=== PATIENT | female | born 1960 | race Caucasian/White ===

== ENCOUNTER 2019-10-22 17:43 | Emergency (ER) | payer SELFPAY ==
[~2019-10-22] VITALS: Ht 149.9 cm; Wt 70.5 kg
[2019-10-22 17:48] VITALS: BP 146/93
== END 2019-10-22 20:14 | disposition left against medical advice (07) ==
LOC: EMS 17:47
DX: M25.562 Pain in left knee (principal); Z53.21 Procedure and treatment not carried out due to patient leaving prior to being seen by health care provider

== ENCOUNTER 2019-10-28 13:57 | Inpatient (IN) | payer OTHER ==
[~2019-10-28] VITALS: Ht 149.9 cm; Wt 70.0 kg
[2019-10-28] MEDS ORDERED: ATEN50TA PO (14:12)
[2019-10-28] MEDS ORDERED: HYDR-3831 PO (14:12)
[2019-10-28] MEDS ORDERED: SODIUM CHLORIDE 0.9% 1,000 ML IV ONE (15:30)
[2019-10-28] MEDS ORDERED: KETOROLAC TROMETHAMINE 30 MG/ML VIAL IVP ONE (15:30)
[2019-10-28] MEDS ORDERED: ONDANSETRON HCL 4 MG/2 ML VIAL IVP ONE (15:30)
[2019-10-28 16:05] LABS: BASOPHILS % (AUTO) 0.9 % (0.0-2.0); EOSINOPHILS % (AUTO) 2.3 % (1.0-6.0); HEMATOCRIT 43.6 % (36-46); HEMOGLOBIN 14.6 g/dL (12.0-16.0); LYMPHOCYTES # (AUTO) 2.3 K/uL (1.0-4.8); LYMPHOCYTES % (AUTO) 37.7 % (22.0-44.0); MEAN CORPUSCULAR HEMOGLOBIN 30.6 pg (26.0-34.0); MEAN CORPUSCULAR HGB CONC 33.5 G/dL (31.0-37.0); MEAN CORPUSCULAR VOLUME 91 fL (80-100); MONOCYTES # (AUTO) 0.5 K/uL (0.1-1.0); MONOCYTES % (AUTO) 8.6 % (2.0-9.0); NEUTROPHILS # (AUTO) 3.1 K/uL (1.8-7.7); NEUTROPHILS % (AUTO) 50.5 % (40.0-70.0); PLATELET COUNT (AUTO) 369 K/uL (150-450); RED BLOOD CELL COUNT(AUTO) 4.77 MIL/uL (4.00-5.20); RED CELL DISTRIBUTION WIDTH 14.5 % (11.5-14.5)
[2019-10-28 16:07] LABS: INR 0.9 (0.9-1.1); PROTHROMBIN TIME 9.4 SEC (9.4-11.6)
[2019-10-28 16:15] LABS: ANION GAP 7 mmol/L (8-16); CALCIUM, TOTAL 9.1 mg/dL (8.8-10.5); CARBON DIOXIDE 27 mmol/L (22-29); CHLORIDE 102 mmol/L (98-107); CREATININE 0.61 mg/dL (0.60-1.30); GLOMERULAR FILTR. RATE CALC > 60 mL/min (>60); GLUCOSE,RANDOM 109 mg/dL (70-110); POTASSIUM 4.9 mmol/L (3.5-5.1); SODIUM SERUM 136 mmol/L (136-145); UREA NITROGEN, BLOOD 15 mg/dL (7-18)
[2019-10-28 16:40] LABS: ALANINE AMINOTRANSFERASE 32 U/L (12-78); ALKALINE PHOSPHATASE 94 U/L (46-116); BILIRUBIN,TOTAL 0.3 mg/dL (0.1-1.0); CREATINE KINASE, TOTAL ONLY 97 U/L (26-192); TOTAL PROTEIN, SERUM 7.5 g/dL (6.4-8.2)
[2019-10-28 16:43] LABS: B-TYPE NATRIURETIC PEPTIDE 11 pg/mL (0-100)
[2019-10-28] MEDS ORDERED: ACETAMINOPHEN 325 MG TABLET PO PRN ×2 (17:00→21:30)
[2019-10-28] MEDS ORDERED: ONDANSETRON HCL 4 MG/2 ML VIAL IVP PRN (17:00)
[2019-10-28] MEDS ORDERED: LIDOCAINE 5% TRANSDERMAL PATCH TD ONE (17:00)
[2019-10-28] MEDS ORDERED: ACETAMINOPHEN 500 MG TABLET PO ONE (17:00)
[2019-10-28 17:26] LABS: ASPARTATE AMINOTRANSFERASE 29 U/L (15-37)
[2019-10-28 18:58] VITALS: BP 141/80
[2019-10-28 20:14] VITALS: BP 115/75
[2019-10-28] MEDS ORDERED: MORPHINE SULFATE 2 MG/ML SYRINGE IVP PRN (20:30)
[2019-10-28] MEDS ORDERED: BISACODYL 10 MG RECTAL RECTAL SUPPOSITORY PR PRN (21:30)
[2019-10-28] MEDS ORDERED: MAGNESIUM HYDROXIDE SUSPENSION 30 ML UDCUP PO PRN (21:30)
[2019-10-28] MEDS: HEPARIN SODIUM,PORCINE 5,000 UNITS/ML VIAL SQ SCH (22:43)
[2019-10-28] MEDS: ZOLPIDEM TARTRATE 5 MG TABLET PO PRN (22:44)
[2019-10-28] MEDS: HYDROCODONE/ACETAMINOPHEN 5-325 MG TABLET PO PRN (22:44)
[2019-10-28 22:45] VITALS: BP 114/73
[2019-10-29] MEDS ORDERED: PNEUMOCOCCAL VACCINE POLYVALENT 0.5 ML VIAL [PPSV23] IM ONE (01:30)
[2019-10-29] MEDS: MORPHINE SULFATE 2 MG/ML SYRINGE IVP PRN ×5 (01:30→22:03)
[2019-10-29] MEDS: HYDROCODONE/ACETAMINOPHEN 5-325 MG TABLET PO PRN ×3 (04:38→14:21)
[2019-10-29 06:22] VITALS: BP 100/68
[2019-10-29 07:51] VITALS: BP 93/55
[2019-10-29 07:54] LABS: BASOPHILS % (AUTO) 0.3 % (0.0-2.0); EOSINOPHILS % (AUTO) 2.4 % (1.0-6.0); HEMATOCRIT 37.1 % (36-46); HEMOGLOBIN 12.8 g/dL (12.0-16.0); LYMPHOCYTES # (AUTO) 2.5 K/uL (1.0-4.8); MEAN CORPUSCULAR HEMOGLOBIN 31.4 pg (26.0-34.0); MEAN CORPUSCULAR HGB CONC 34.4 G/dL (31.0-37.0); MEAN CORPUSCULAR VOLUME 91 fL (80-100); MONOCYTES # (AUTO) 0.4 K/uL (0.1-1.0); NEUTROPHILS # (AUTO) 1.8 K/uL (1.8-7.7); NEUTROPHILS % (AUTO) 36.3 % (40.0-70.0); PLATELET COUNT (AUTO) 318 K/uL (150-450); RED BLOOD CELL COUNT(AUTO) 4.07 MIL/uL (4.00-5.20); RED CELL DISTRIBUTION WIDTH 14.2 % (11.5-14.5)
[2019-10-29 08:20] LABS: ANION GAP 10 mmol/L (8-16); CALCIUM, TOTAL 8.6 mg/dL (8.8-10.5); CARBON DIOXIDE 23 mmol/L (22-29); CHLORIDE 105 mmol/L (98-107); CREATININE 0.69 mg/dL (0.60-1.30); GLOMERULAR FILTR. RATE CALC > 60 mL/min (>60); GLUCOSE,RANDOM 80 mg/dL (70-110); POTASSIUM 4.3 mmol/L (3.5-5.1); SODIUM SERUM 138 mmol/L (136-145); THYROID STIMULATING HORMONE 2.57 uIU/mL (0.36-3.74); UREA NITROGEN, BLOOD 14 mg/dL (7-18)
[2019-10-29] MEDS: PANTOPRAZOLE SODIUM 40 MG DR TABLET PO SCH (08:41)
[2019-10-29] MEDS: HEPARIN SODIUM,PORCINE 5,000 UNITS/ML VIAL SQ SCH ×3 (08:41→23:35)
[2019-10-29] MEDS: DOCUSATE SODIUM 100 MG CAPSULE PO SCH ×2 (08:42→20:25)
[2019-10-29] MEDS: ATENOLOL 50 MG TABLET PO SCH (08:42)
[2019-10-29] MEDS: ONDANSETRON HCL 4 MG/2 ML VIAL IVP PRN (10:02)
[2019-10-29 11:35] VITALS: BP 131/79
[2019-10-29 15:13] VITALS: BP 117/79
[2019-10-29 18:07] LABS: AMPHET/METH SCREEN,URINE NEGATIVE (NEGATIVE); BARBITURATE SCREEN, URINE NEGATIVE (NEGATIVE); BENZODIAZEPINES SCREEN,URINE NEGATIVE (NEGATIVE); CANNABINOID SCREEN,URINE NEGATIVE (NEGATIVE); COCAINE SCREEN,URINE NEGATIVE (NEGATIVE); METHADONE SCREEN, URINE NEGATIVE (NEGATIVE); OPIATE SCREEN,URINE POSITIVE (NEGATIVE); PHENCYCLIDINE SCREEN,URINE NEGATIVE (NEGATIVE)
[2019-10-29 20:01] VITALS: BP 140/75
[2019-10-29] MEDS: LORazepam 2 MG/ML VIAL IVP PRN (20:27)
[2019-10-29] MEDS: ZOLPIDEM TARTRATE 5 MG TABLET PO PRN (22:03)
[2019-10-29 23:52] VITALS: BP 102/72
[2019-10-30] MEDS: MORPHINE SULFATE 2 MG/ML SYRINGE IVP PRN ×4 (04:06→19:47)
[2019-10-30 04:10] VITALS: BP 97/62
[2019-10-30] MEDS: HYDROCODONE/ACETAMINOPHEN 5-325 MG TABLET PO PRN ×3 (06:18→21:48)
[2019-10-30 07:54] VITALS: BP 108/75
[2019-10-30] MEDS: ONDANSETRON HCL 4 MG/2 ML VIAL IVP PRN ×2 (07:58→22:40)
[2019-10-30 08:30] VITALS: BP 107/73
[2019-10-30] MEDS: ATENOLOL 50 MG TABLET PO SCH (09:00)
[2019-10-30] MEDS: DOCUSATE SODIUM 100 MG CAPSULE PO SCH ×2 (09:00→19:47)
[2019-10-30] MEDS ORDERED: REGADENOSON 0.4 MG/5 ML PF SYRINGE IVP ONE ×2 (09:59→10:09)
[2019-10-30 10:09] VITALS: BP 126/85
[2019-10-30] MEDS: PANTOPRAZOLE SODIUM 40 MG DR TABLET PO SCH (10:52)
[2019-10-30] MEDS: LORazepam 2 MG/ML VIAL IVP PRN ×3 (10:53→23:31)
[2019-10-30] MEDS: HEPARIN SODIUM,PORCINE 5,000 UNITS/ML VIAL SQ SCH ×3 (10:53→23:31)
[2019-10-30 11:13] VITALS: BP 128/72
[2019-10-30 21:00] VITALS: BP 130/86
[2019-10-31 00:53] VITALS: BP 122/80
[2019-10-31] MEDS: MORPHINE SULFATE 2 MG/ML SYRINGE IVP PRN (01:19)
[2019-10-31] MEDS: HYDROCODONE/ACETAMINOPHEN 5-325 MG TABLET PO PRN (03:04)
[2019-10-31 04:15] VITALS: BP 98/64
[2019-10-31 08:00] VITALS: BP 128/93
== END 2019-10-31 10:10 | disposition home or self-care (01) | DRG 203 ==
LOC: EMS 13:57 → 5N 18:12
PROVIDERS: ADMIT Internal Medicine; ATTEND Internal Medicine
PROC: 3E0234Z Introduction of Serum, Toxoid and Vaccine into Muscle, Percutaneous Approach (ICD-10-PCS; 2019-10-29)
PROC: 4A02XM4 Measurement of Cardiac Total Activity, External Approach (ICD-10-PCS; principal; 2019-10-30)
DX: R07.89 Other chest pain (principal); F15.10 Other stimulant abuse, uncomplicated; R42 Dizziness and giddiness; F41.1 Generalized anxiety disorder; I10 Essential (primary) hypertension; Z96.659 Presence of unspecified artificial knee joint; R55 Syncope and collapse; M25.562 Pain in left knee; Z88.6 Allergy status to analgesic agent; Z88.8 Allergy status to other drugs, medicaments and biological substances; Z90.49 Acquired absence of other specified parts of digestive tract; Z87.891 Personal history of nicotine dependence; Z85.07 Personal history of malignant neoplasm of pancreas; Z90.710 Acquired absence of both cervix and uterus; Z82.49 Family history of ischemic heart disease and other diseases of the circulatory system; Z23 Encounter for immunization
CPT/HCPCS: 70450; 78452; 80307; 84443; 87081; 90732; 93005; 93017; 93306; 93880; J1644; J1885; J2060; J2270; J2405; J2785; J7030

== ENCOUNTER 2019-12-31 21:35 | Emergency (ER) | payer OTHER ==
[~2019-12-31] VITALS: Ht 149.9 cm; Wt 70.5 kg
[2019-12-31] MEDS ORDERED: LISI-662 PO (21:51)
[2019-12-31] MEDS ORDERED: HYDR50CA9 PO (21:51)
[2019-12-31] MEDS ORDERED: MAGNESIUM SULFATE 2 GM/WATER 50 ML IV ONE (22:15)
[2019-12-31] MEDS ORDERED: CloNIDine HCL 0.2 MG TABLET PO ONE (22:15)
[2019-12-31] MEDS ORDERED: SODIUM CHLORIDE 0.9% 1,000 ML IV ONE (22:15)
[2019-12-31] MEDS ORDERED: ACETAMINOPHEN/CODEINE 300-30 MG TABLET PO ONE (22:15)
[2019-12-31] MEDS ORDERED: CARISOPRODOL 350 MG TABLET PO ONE (22:15)
[2020-01-01 02:06] VITALS: BP 120/78
== END 2020-01-01 02:10 | disposition home or self-care (01) ==
LOC: EMS 21:35
DX: G44.209 Tension-type headache, unspecified, not intractable (principal); I10 Essential (primary) hypertension; F41.9 Anxiety disorder, unspecified; F17.210 Nicotine dependence, cigarettes, uncomplicated; Z90.710 Acquired absence of both cervix and uterus; Z90.49 Acquired absence of other specified parts of digestive tract; Z88.8 Allergy status to other drugs, medicaments and biological substances; Z79.899 Other long term (current) drug therapy
CPT/HCPCS: 96365; 99283; J3475; J7030

== ENCOUNTER 2020-01-10 14:25 | Inpatient (IN) | payer MEDICAID, OTHER ==
[~2020-01-10] VITALS: Ht 149.9 cm; Wt 73.5 kg
[~2020-01-10 14:25] MED LIST: HYDR50CA9 PO; LISI-662 PO
[2020-01-10 15:21] LABS: AMPHET/METH SCREEN,URINE NEGATIVE (NEGATIVE); BARBITURATE SCREEN, URINE NEGATIVE (NEGATIVE); BENZODIAZEPINES SCREEN,URINE NEGATIVE (NEGATIVE); CANNABINOID SCREEN,URINE NEGATIVE (NEGATIVE); COCAINE SCREEN,URINE NEGATIVE (NEGATIVE); METHADONE SCREEN, URINE NEGATIVE (NEGATIVE); OPIATE SCREEN,URINE NEGATIVE (NEGATIVE)
[2020-01-10 15:22] LABS: PHENCYCLIDINE SCREEN,URINE NEGATIVE (NEGATIVE)
[2020-01-10 15:37] LABS: BASOPHILS % (AUTO) 0.7 % (0.0-2.0); EOSINOPHILS % (AUTO) 1.2 % (1.0-6.0); HEMATOCRIT 41.4 % (36-46); HEMOGLOBIN 13.9 g/dL (12.0-16.0); LYMPHOCYTES # (AUTO) 1.5 K/uL (1.0-4.8); LYMPHOCYTES % (AUTO) 32.4 % (22.0-44.0); MEAN CORPUSCULAR HEMOGLOBIN 30.9 pg (26.0-34.0); MEAN CORPUSCULAR HGB CONC 33.6 G/dL (31.0-37.0); MEAN CORPUSCULAR VOLUME 92 fL (80-100); MONOCYTES # (AUTO) 0.5 K/uL (0.1-1.0); MONOCYTES % (AUTO) 10.8 % (2.0-9.0); NEUTROPHILS # (AUTO) 2.6 K/uL (1.8-7.7); NEUTROPHILS % (AUTO) 54.9 % (40.0-70.0); PLATELET COUNT (AUTO) 346 K/uL (150-450); RED BLOOD CELL COUNT(AUTO) 4.51 MIL/uL (4.00-5.20); RED CELL DISTRIBUTION WIDTH 14.4 % (11.5-14.5)
[2020-01-10 15:54] LABS: ANION GAP 15 mmol/L (8-16); CARBON DIOXIDE 23 mmol/L (22-29); CHLORIDE 107 mmol/L (98-107); CREATININE 0.67 mg/dL (0.60-1.30); GLOMERULAR FILTR. RATE CALC > 60 mL/min (>60); GLUCOSE,RANDOM 93 mg/dL (70-110); POTASSIUM 3.3 mmol/L (3.5-5.1); SODIUM SERUM 145 mmol/L (136-145); UREA NITROGEN, BLOOD 10 mg/dL (7-18)
[2020-01-10 16:01] LABS: ALANINE AMINOTRANSFERASE 19 U/L (12-78); ALBUMIN 3.8 g/dL (3.4-5.0); ALKALINE PHOSPHATASE 80 U/L (46-116); ASPARTATE AMINOTRANSFERASE 15 U/L (15-37); BILIRUBIN,TOTAL 0.3 mg/dL (0.1-1.0); TOTAL PROTEIN, SERUM 6.8 g/dL (6.4-8.2)
[2020-01-10] MEDS ORDERED: LORazepam 2 MG TABLET PO ONE (16:45)
[2020-01-10] MEDS ORDERED: LORazepam 1 MG TABLET PO ONE (17:00)
[2020-01-10] MEDS ORDERED: HALOPERIDOL 5 MG TABLET PO ONE (18:00)
[2020-01-10] MEDS ORDERED: LORazepam 2 MG TABLET PO PRN (18:45)
[2020-01-10 21:05] VITALS: BP 156/99
[2020-01-10] MEDS ORDERED: ALBUTEROL SULFATE HFA 90 MCG/PUFF 8 GM INHALER IH PRN (21:30)
[2020-01-10] MEDS: QUEtiapine FUMARATE 100 MG TABLET PO SCH (22:07)
[2020-01-11] MEDS: HALOPERIDOL 5 MG TABLET PO PRN (00:19)
[2020-01-11 03:21] VITALS: BP 143/82
[2020-01-11 08:00] VITALS: BP 106/75
[2020-01-11 09:28] LABS: CHOL/HDL RATIO 2.9 (3.9-5.7)
[2020-01-11 09:40] VITALS: BP 116/82
[2020-01-11] MEDS: HydrOXYzine PAMOATE 50 MG CAPSULE PO SCH ×2 (09:42→16:47)
[2020-01-11] MEDS: LISINOPRIL 20 MG TABLET PO SCH ×2 (09:42→16:46)
[2020-01-11 10:03] VITALS: BP 106/75
[2020-01-11] MEDS: SERTRALINE HCL 50 MG TABLET PO SCH (12:10)
[2020-01-11] MEDS: LORazepam 1 MG TABLET PO PRN (12:11)
[2020-01-11] MEDS ORDERED: MAGNESIUM HYDROXIDE SUSPENSION 30 ML UDCUP PO PRN (14:00)
[2020-01-11] MEDS ORDERED: NICOTINE 14 MG/24 HOUR PATCH TD PRN (14:00)
[2020-01-11] MEDS ORDERED: MAG HYDROX/AL HYDROX/SIMETH ES 30 ML SUSPENSION UDCUP PO PRN (14:00)
[2020-01-11] MEDS ORDERED: PETROLATUM,WHITE 28 GM JELLY TP PRN (14:00)
[2020-01-11] MEDS ORDERED: GuaiFENesin/D-METHORPHAN [SUGAR-FREE] 200-20MG/10 ML SYRUP UDCUP PO PRN (14:00)
[2020-01-11] MEDS ORDERED: LOPERAMIDE HCL 2 MG CAPSULE PO PRN (14:00)
[2020-01-11] MEDS ORDERED: CloNIDine HCL 0.1 MG TABLET PO PRN (14:00)
[2020-01-11] MEDS ORDERED: ONDANSETRON HCL 4 MG TABLET PO PRN (14:00)
[2020-01-11] MEDS ORDERED: ALBUTEROL SULFATE HFA 90 MCG/PUFF 8 GM INHALER IH PRN (14:00)
[2020-01-11] MEDS ORDERED: DOCUSATE SODIUM 100 MG CAPSULE PO PRN (14:00)
[2020-01-11 17:00] VITALS: BP 118/74
[2020-01-11] MEDS: QUEtiapine FUMARATE 100 MG TABLET PO SCH (20:37)
[2020-01-11] MEDS: PRAZOSIN HCL 1 MG CAPSULE PO SCH (20:37)
[2020-01-12] MEDS: ZOLPIDEM TARTRATE 10 MG TABLET PO PRN (02:35)
[2020-01-12] MEDS: LORazepam 1 MG TABLET PO PRN ×3 (04:25→14:36)
[2020-01-12] MEDS: HALOPERIDOL 5 MG TABLET PO PRN ×3 (04:25→14:36)
[2020-01-12 04:28] VITALS: BP 113/79
[2020-01-12 07:28] LABS: HEMOGLOBIN A1C 5.6 % (3.8-5.6)
[2020-01-12 07:43] LABS: POTASSIUM 4.1 mmol/L (3.5-5.1)
[2020-01-12 08:00] VITALS: BP 97/72
[2020-01-12 09:50] VITALS: BP 108/87
[2020-01-12] MEDS: SERTRALINE HCL 50 MG TABLET PO SCH (09:52)
[2020-01-12] MEDS: LISINOPRIL 20 MG TABLET PO SCH ×2 (09:52→16:48)
[2020-01-12] MEDS: HydrOXYzine PAMOATE 50 MG CAPSULE PO SCH ×2 (09:52→16:48)
[2020-01-12 16:42] VITALS: BP 102/69
[2020-01-12] MEDS: QUEtiapine FUMARATE 100 MG TABLET PO SCH (20:11)
[2020-01-12] MEDS: PRAZOSIN HCL 1 MG CAPSULE PO SCH (20:11)
[2020-01-13 02:00] VITALS: BP 100/60
[2020-01-13] MEDS: LORazepam 1 MG TABLET PO PRN ×4 (03:33→23:37)
[2020-01-13] MEDS: HALOPERIDOL 5 MG TABLET PO PRN ×4 (03:35→23:32)
[2020-01-13 08:21] VITALS: BP 116/64
[2020-01-13] MEDS: SERTRALINE HCL 50 MG TABLET PO SCH (09:46)
[2020-01-13] MEDS: HydrOXYzine PAMOATE 50 MG CAPSULE PO SCH ×2 (09:46→16:38)
[2020-01-13] MEDS: LISINOPRIL 20 MG TABLET PO SCH ×2 (09:46→16:38)
[2020-01-13 09:51] VITALS: BP 98/65
[2020-01-13 16:38] VITALS: BP 106/78
[2020-01-13 16:41] VITALS: BP 90/80
[2020-01-13] MEDS ORDERED: QUEtiapine FUMARATE 200 MG TABLET PO SCH (21:00)
[2020-01-13] MEDS: PRAZOSIN HCL 1 MG CAPSULE PO SCH (21:42)
[2020-01-13 23:30] VITALS: BP 100/60
[2020-01-14 01:09] VITALS: BP 94/60
[2020-01-14] MEDS: HydrOXYzine PAMOATE 50 MG CAPSULE PO SCH ×2 (07:53→16:10)
[2020-01-14] MEDS: HALOPERIDOL 5 MG TABLET PO PRN ×3 (07:53→16:34)
[2020-01-14] MEDS: LISINOPRIL 20 MG TABLET PO SCH ×2 (07:53→16:11)
[2020-01-14] MEDS: LORazepam 1 MG TABLET PO PRN ×3 (07:53→16:37)
[2020-01-14] MEDS: SERTRALINE HCL 50 MG TABLET PO SCH (07:53)
[2020-01-14 08:44] VITALS: BP 114/71
[2020-01-14] MEDS: QUEtiapine FUMARATE 100 MG TABLET PO SCH (11:13)
[2020-01-14 17:00] VITALS: BP 98/68
[2020-01-14] MEDS: PRAZOSIN HCL 1 MG CAPSULE PO SCH (20:01)
[2020-01-14] MEDS: QUEtiapine FUMARATE 300 MG TABLET PO SCH (20:01)
[2020-01-15 02:05] VITALS: BP 110/72
[2020-01-15] MEDS: ZOLPIDEM TARTRATE 10 MG TABLET PO PRN (02:09)
[2020-01-15] MEDS: LORazepam 1 MG TABLET PO PRN ×3 (02:09→17:27)
[2020-01-15 08:21] VITALS: BP 102/73
[2020-01-15] MEDS: LISINOPRIL 20 MG TABLET PO SCH ×2 (09:00→16:00)
[2020-01-15] MEDS: HydrOXYzine PAMOATE 50 MG CAPSULE PO SCH ×2 (09:06→16:00)
[2020-01-15] MEDS: QUEtiapine FUMARATE 100 MG TABLET PO SCH (09:06)
[2020-01-15] MEDS: SERTRALINE HCL 50 MG TABLET PO SCH (09:06)
[2020-01-15] MEDS: HALOPERIDOL 5 MG TABLET PO PRN (11:03)
[2020-01-15] MEDS: HALOPERIDOL 5 MG TABLET PO SCH (16:00)
[2020-01-15] MEDS ORDERED: DIVA500T52 PO (16:27)
[2020-01-15] MEDS ORDERED: OLAN7.5T2 PO (16:28)
[2020-01-15] MEDS ORDERED: FLUO-191 PO (16:28)
[2020-01-15] MEDS ORDERED: AMLO5TAB9 PO (16:29)
[2020-01-15] MEDS ORDERED: PANT40TA25 PO (16:29)
[2020-01-15 16:46] VITALS: BP 115/80
[2020-01-15] MEDS: QUEtiapine FUMARATE 300 MG TABLET PO SCH (21:31)
[2020-01-15] MEDS: PRAZOSIN HCL 1 MG CAPSULE PO SCH (21:31)
[2020-01-16] MEDS: LORazepam 1 MG TABLET PO PRN ×4 (03:16→19:51)
[2020-01-16 04:10] VITALS: BP 90/62
[2020-01-16] MEDS: HALOPERIDOL 5 MG TABLET PO PRN ×2 (06:41→19:52)
[2020-01-16 08:59] VITALS: BP 101/66
[2020-01-16] MEDS: QUEtiapine FUMARATE 100 MG TABLET PO SCH (09:50)
[2020-01-16] MEDS: HydrOXYzine PAMOATE 50 MG CAPSULE PO SCH ×2 (09:50→16:26)
[2020-01-16] MEDS: LISINOPRIL 20 MG TABLET PO SCH ×2 (09:50→16:26)
[2020-01-16] MEDS: SERTRALINE HCL 50 MG TABLET PO SCH (09:50)
[2020-01-16] MEDS: HALOPERIDOL 5 MG TABLET PO SCH ×3 (09:51→16:34)
[2020-01-16 16:32] VITALS: BP 93/61
[2020-01-16 19:48] VITALS: BP 100/60
[2020-01-16] MEDS: ACETAMINOPHEN 325 MG TABLET PO PRN (19:48)
[2020-01-16] MEDS: QUEtiapine FUMARATE 300 MG TABLET PO SCH (20:30)
[2020-01-16] MEDS: PRAZOSIN HCL 1 MG CAPSULE PO SCH (20:30)
[2020-01-17] MEDS: HALOPERIDOL 5 MG TABLET PO PRN ×3 (01:19→12:16)
[2020-01-17] MEDS: ZOLPIDEM TARTRATE 10 MG TABLET PO PRN (01:19)
[2020-01-17 03:40] VITALS: BP 96/64
[2020-01-17] MEDS: LORazepam 1 MG TABLET PO PRN ×3 (06:29→16:24)
[2020-01-17] MEDS: HydrOXYzine PAMOATE 50 MG CAPSULE PO SCH ×2 (08:27→16:24)
[2020-01-17] MEDS: QUEtiapine FUMARATE 100 MG TABLET PO SCH (08:27)
[2020-01-17] MEDS: LISINOPRIL 20 MG TABLET PO SCH ×2 (08:27→16:24)
[2020-01-17] MEDS: SERTRALINE HCL 50 MG TABLET PO SCH (08:28)
[2020-01-17] MEDS: HALOPERIDOL 5 MG TABLET PO SCH ×2 (08:28→16:24)
[2020-01-17 09:53] VITALS: BP 109/70
[2020-01-17 16:36] VITALS: BP 118/69
[2020-01-17] MEDS: PRAZOSIN HCL 1 MG CAPSULE PO SCH (20:26)
[2020-01-17] MEDS: QUEtiapine FUMARATE 300 MG TABLET PO SCH (20:26)
[2020-01-18] MEDS: LORazepam 1 MG TABLET PO PRN ×2 (01:18→10:54)
[2020-01-18] MEDS: HALOPERIDOL 5 MG TABLET PO PRN ×3 (01:18→22:37)
[2020-01-18 01:19] VITALS: BP 95/63
[2020-01-18] MEDS: HydrOXYzine PAMOATE 50 MG CAPSULE PO SCH ×2 (08:10→16:23)
[2020-01-18] MEDS: LISINOPRIL 20 MG TABLET PO SCH ×2 (08:10→17:39)
[2020-01-18] MEDS: SERTRALINE HCL 50 MG TABLET PO SCH (08:10)
[2020-01-18] MEDS: HALOPERIDOL 5 MG TABLET PO SCH (08:11)
[2020-01-18] MEDS: QUEtiapine FUMARATE 100 MG TABLET PO SCH (08:11)
[2020-01-18 09:22] VITALS: BP 119/77
[2020-01-18] MEDS: TraMADol HCL 50 MG TABLET PO PRN (13:12)
[2020-01-18 16:20] VITALS: BP 108/67
[2020-01-18] MEDS: HALOPERIDOL 10 MG TABLET PO SCH (16:23)
[2020-01-18] MEDS: PRAZOSIN HCL 1 MG CAPSULE PO SCH (20:18)
[2020-01-18] MEDS: QUEtiapine FUMARATE 300 MG TABLET PO SCH (20:18)
[2020-01-19] VITALS (7 sets, daily range): BP systolic 88–121; BP diastolic 53–83
[2020-01-19] MEDS: LORazepam 1 MG TABLET PO PRN ×2 (03:19→23:36)
[2020-01-19] MEDS: HALOPERIDOL 5 MG TABLET PO PRN (03:19)
[2020-01-19] MEDS: TraMADol HCL 50 MG TABLET PO PRN ×2 (06:50→17:49)
[2020-01-19] MEDS: HALOPERIDOL 10 MG TABLET PO SCH ×2 (08:46→17:04)
[2020-01-19] MEDS: SERTRALINE HCL 50 MG TABLET PO SCH (08:46)
[2020-01-19] MEDS: LISINOPRIL 20 MG TABLET PO SCH ×2 (08:46→17:04)
[2020-01-19] MEDS: HydrOXYzine PAMOATE 50 MG CAPSULE PO SCH ×2 (08:46→17:05)
[2020-01-19] MEDS: QUEtiapine FUMARATE 100 MG TABLET PO SCH (08:46)
[2020-01-19] MEDS: PRAZOSIN HCL 1 MG CAPSULE PO SCH (21:00)
[2020-01-19] MEDS: QUEtiapine FUMARATE 300 MG TABLET PO SCH (21:00)
[2020-01-20 00:29] VITALS: BP 90/59
[2020-01-20] MEDS: HALOPERIDOL 5 MG TABLET PO PRN (01:34)
[2020-01-20] MEDS: LORazepam 1 MG TABLET PO PRN (06:34)
[2020-01-20] MEDS: TraMADol HCL 50 MG TABLET PO PRN (06:42)
[2020-01-20 08:00] VITALS: BP 108/78
[2020-01-20] MEDS: LISINOPRIL 20 MG TABLET PO SCH ×2 (08:47→17:00)
[2020-01-20] MEDS: QUEtiapine FUMARATE 100 MG TABLET PO SCH (08:47)
[2020-01-20] MEDS: HydrOXYzine PAMOATE 50 MG CAPSULE PO SCH ×2 (08:48→17:00)
[2020-01-20] MEDS: SERTRALINE HCL 50 MG TABLET PO SCH (08:48)
[2020-01-20] MEDS: HALOPERIDOL 10 MG TABLET PO SCH ×2 (08:48→18:03)
[2020-01-20] MEDS: PRAZOSIN HCL 1 MG CAPSULE PO SCH (21:00)
[2020-01-20] MEDS: QUEtiapine FUMARATE 300 MG TABLET PO SCH (21:49)
[2020-01-20 22:11] VITALS: BP 95/66
[2020-01-21] MEDS: LORazepam 1 MG TABLET PO PRN ×2 (00:46→10:10)
[2020-01-21 03:31] VITALS: BP 98/67
[2020-01-21 04:52] VITALS: BP 108/79
[2020-01-21] MEDS: TraMADol HCL 50 MG TABLET PO PRN (04:54)
[2020-01-21] MEDS: HALOPERIDOL 5 MG TABLET PO PRN (04:54)
[2020-01-21 08:00] VITALS: BP 111/70
[2020-01-21] MEDS: HydrOXYzine PAMOATE 50 MG CAPSULE PO SCH ×2 (10:08→17:00)
[2020-01-21] MEDS: LISINOPRIL 20 MG TABLET PO SCH ×2 (10:08→17:00)
[2020-01-21] MEDS: SERTRALINE HCL 50 MG TABLET PO SCH (10:08)
[2020-01-21] MEDS: QUEtiapine FUMARATE 100 MG TABLET PO SCH (10:08)
[2020-01-21] MEDS: HALOPERIDOL 10 MG TABLET PO SCH ×2 (10:09→17:03)
[2020-01-21 10:10] VITALS: BP 112/84
[2020-01-21] MEDS: ACETAMINOPHEN 325 MG TABLET PO PRN (10:10)
[2020-01-21 19:08] VITALS: BP 92/70
[2020-01-21] MEDS: PRAZOSIN HCL 1 MG CAPSULE PO SCH (21:00)
[2020-01-21] MEDS: QUEtiapine FUMARATE 300 MG TABLET PO SCH (21:53)
[2020-01-22 02:34] VITALS: BP 95/72
[2020-01-22 05:57] VITALS: BP 118/76
[2020-01-22] MEDS: TraMADol HCL 50 MG TABLET PO PRN (05:59)
[2020-01-22] MEDS: HALOPERIDOL 5 MG TABLET PO PRN ×2 (05:59→22:52)
[2020-01-22 08:45] VITALS: BP 123/89
[2020-01-22] MEDS: HydrOXYzine PAMOATE 50 MG CAPSULE PO SCH ×2 (08:46→16:49)
[2020-01-22] MEDS: QUEtiapine FUMARATE 100 MG TABLET PO SCH (08:46)
[2020-01-22] MEDS: LISINOPRIL 20 MG TABLET PO SCH ×2 (08:46→16:49)
[2020-01-22] MEDS: SERTRALINE HCL 50 MG TABLET PO SCH (08:46)
[2020-01-22] MEDS: HALOPERIDOL 10 MG TABLET PO SCH ×2 (08:46→16:49)
[2020-01-22] MEDS: LORazepam 1 MG TABLET PO PRN ×3 (08:47→22:52)
[2020-01-22 16:27] VITALS: BP 100/65
[2020-01-22] MEDS: QUEtiapine FUMARATE 300 MG TABLET PO SCH (20:46)
[2020-01-22] MEDS: PRAZOSIN HCL 1 MG CAPSULE PO SCH (20:46)
[2020-01-23] MEDS: TraMADol HCL 50 MG TABLET PO PRN ×2 (05:31→16:18)
[2020-01-23] MEDS: HALOPERIDOL 5 MG TABLET PO PRN (05:31)
[2020-01-23 06:00] VITALS: BP 100/72
[2020-01-23 08:36] VITALS: BP 117/75
[2020-01-23] MEDS: LISINOPRIL 20 MG TABLET PO SCH ×3 (08:57→17:00)
[2020-01-23] MEDS: SERTRALINE HCL 50 MG TABLET PO SCH (08:57)
[2020-01-23] MEDS: QUEtiapine FUMARATE 100 MG TABLET PO SCH (08:57)
[2020-01-23] MEDS: HALOPERIDOL 10 MG TABLET PO SCH ×2 (08:57→16:17)
[2020-01-23] MEDS: HydrOXYzine PAMOATE 50 MG CAPSULE PO SCH ×2 (08:57→16:17)
[2020-01-23] MEDS: LORazepam 1 MG TABLET PO PRN (14:02)
[2020-01-23 16:15] VITALS: BP 99/60
[2020-01-23 20:03] VITALS: BP 97/67
[2020-01-23] MEDS: PRAZOSIN HCL 1 MG CAPSULE PO SCH (20:04)
[2020-01-23] MEDS: QUEtiapine FUMARATE 300 MG TABLET PO SCH (20:05)
[2020-01-24 02:50] VITALS: BP 110/63
[2020-01-24] MEDS: HALOPERIDOL 5 MG TABLET PO PRN (02:51)
[2020-01-24] MEDS: LORazepam 1 MG TABLET PO PRN ×2 (02:51→16:22)
[2020-01-24 08:55] VITALS: BP 111/76
[2020-01-24] MEDS: LISINOPRIL 20 MG TABLET PO SCH ×2 (08:55→16:22)
[2020-01-24] MEDS: HALOPERIDOL 10 MG TABLET PO SCH ×2 (08:55→16:22)
[2020-01-24] MEDS: HydrOXYzine PAMOATE 50 MG CAPSULE PO SCH ×2 (08:55→16:22)
[2020-01-24] MEDS: QUEtiapine FUMARATE 100 MG TABLET PO SCH (08:55)
[2020-01-24] MEDS: TraMADol HCL 50 MG TABLET PO PRN (08:55)
[2020-01-24] MEDS: SERTRALINE HCL 50 MG TABLET PO SCH (08:56)
[2020-01-24 16:43] VITALS: BP 113/70
[2020-01-24] MEDS: PRAZOSIN HCL 1 MG CAPSULE PO SCH (21:08)
[2020-01-24] MEDS: QUEtiapine FUMARATE 300 MG TABLET PO SCH (21:08)
[2020-01-25] MEDS: HALOPERIDOL 5 MG TABLET PO PRN (02:03)
[2020-01-25 02:15] VITALS: BP 85/66
[2020-01-25 05:40] VITALS: BP 114/80
[2020-01-25] MEDS: LORazepam 1 MG TABLET PO PRN ×2 (05:41→16:17)
[2020-01-25] MEDS: TraMADol HCL 50 MG TABLET PO PRN ×2 (05:42→16:17)
[2020-01-25] MEDS: QUEtiapine FUMARATE 100 MG TABLET PO SCH (08:28)
[2020-01-25] MEDS: SERTRALINE HCL 50 MG TABLET PO SCH (08:28)
[2020-01-25] MEDS: LISINOPRIL 20 MG TABLET PO SCH ×2 (08:28→16:15)
[2020-01-25] MEDS: HALOPERIDOL 10 MG TABLET PO SCH ×2 (08:28→16:14)
[2020-01-25] MEDS: HydrOXYzine PAMOATE 50 MG CAPSULE PO SCH ×2 (08:28→16:15)
[2020-01-25 09:14] VITALS: BP 112/75
[2020-01-25 16:47] VITALS: BP 107/68
[2020-01-25] MEDS: QUEtiapine FUMARATE 300 MG TABLET PO SCH (20:19)
[2020-01-25] MEDS: PRAZOSIN HCL 1 MG CAPSULE PO SCH (20:19)
[2020-01-26] MEDS: HALOPERIDOL 5 MG TABLET PO PRN (02:55)
[2020-01-26 03:03] VITALS: BP 96/69
[2020-01-26] MEDS: LORazepam 1 MG TABLET PO PRN (08:02)
[2020-01-26] MEDS: QUEtiapine FUMARATE 100 MG TABLET PO SCH (09:08)
[2020-01-26] MEDS: HALOPERIDOL 10 MG TABLET PO SCH ×2 (09:08→16:50)
[2020-01-26] MEDS: HydrOXYzine PAMOATE 50 MG CAPSULE PO SCH ×2 (09:08→16:50)
[2020-01-26] MEDS: LISINOPRIL 20 MG TABLET PO SCH ×2 (09:09→16:51)
[2020-01-26] MEDS: SERTRALINE HCL 50 MG TABLET PO SCH (09:09)
[2020-01-26 09:33] VITALS: BP 115/83
[2020-01-26 13:22] VITALS: BP 129/67
[2020-01-26] MEDS: TraMADol HCL 50 MG TABLET PO PRN (13:22)
[2020-01-26 16:23] VITALS: BP 95/64
[2020-01-26] MEDS: PRAZOSIN HCL 1 MG CAPSULE PO SCH (20:24)
[2020-01-26] MEDS: QUEtiapine FUMARATE 300 MG TABLET PO SCH (20:25)
[2020-01-27 00:30] VITALS: BP 87/65
[2020-01-27] MEDS: HALOPERIDOL 5 MG TABLET PO PRN (00:31)
[2020-01-27 05:30] VITALS: BP 101/74
[2020-01-27] MEDS: LORazepam 1 MG TABLET PO PRN (05:32)
[2020-01-27] MEDS ORDERED: HALO10 PO (07:47)
[2020-01-27] MEDS ORDERED: QUET100T PO (07:48)
[2020-01-27] MEDS ORDERED: SERT50TA12 PO (07:49)
[2020-01-27] MEDS ORDERED: QUET300T2 PO (07:52)
[2020-01-27] MEDS ORDERED: PRAZ1 PO (07:53)
[2020-01-27 08:26] VITALS: BP 113/75
[2020-01-27] MEDS: LISINOPRIL 20 MG TABLET PO SCH (08:26)
[2020-01-27] MEDS: HALOPERIDOL 10 MG TABLET PO SCH (08:26)
[2020-01-27] MEDS: HydrOXYzine PAMOATE 50 MG CAPSULE PO SCH (08:26)
[2020-01-27] MEDS: SERTRALINE HCL 50 MG TABLET PO SCH (08:26)
[2020-01-27] MEDS: TraMADol HCL 50 MG TABLET PO PRN (08:26)
[2020-01-27] MEDS: QUEtiapine FUMARATE 100 MG TABLET PO SCH (08:27)
== END 2020-01-27 09:00 | disposition home or self-care (01) | DRG 881 ==
LOC: EMS 14:27 → 3EI 19:27
PROVIDERS: ADMIT Psychiatry & Neurology Psychiatry; ATTEND Psychiatry & Neurology Child & Adolescent Psychiatry
DX: F32.9 Major depressive disorder, single episode, unspecified (principal); R45.851 Suicidal ideations; E87.6 Hypokalemia; F10.10 Alcohol abuse, uncomplicated; F25.9 Schizoaffective disorder, unspecified; F43.10 Post-traumatic stress disorder, unspecified; I10 Essential (primary) hypertension; J45.909 Unspecified asthma, uncomplicated; Y90.1 Blood alcohol level of 20-39 mg/100 ml; Z59.0 Homelessness; Z85.07 Personal history of malignant neoplasm of pancreas; Z87.891 Personal history of nicotine dependence; Z90.710 Acquired absence of both cervix and uterus; Z96.659 Presence of unspecified artificial knee joint
CPT/HCPCS: 83036; 84132; 87081; G0480

== ENCOUNTER 2020-02-25 09:47 | Emergency (ER) | payer MEDICAID, OTHER ==
[~2020-02-25] VITALS: Ht 149.9 cm; Wt 65.9 kg
[~2020-02-25 09:47] MED LIST changes: +HALO10 PO; +PRAZ1 PO; +QUET100T PO; +QUET300T2 PO; +SERT50TA12 PO
[2020-02-25 12:04] LABS: BASOPHILS % (AUTO) 0.6 % (0.0-2.0); EOSINOPHILS % (AUTO) 0.9 % (1.0-6.0); HEMATOCRIT 42.9 % (36-46); HEMOGLOBIN 14.1 g/dL (12.0-16.0); LYMPHOCYTES # (AUTO) 1.7 K/uL (1.0-4.8); LYMPHOCYTES % (AUTO) 32.6 % (22.0-44.0); MEAN CORPUSCULAR HEMOGLOBIN 30.2 pg (26.0-34.0); MEAN CORPUSCULAR HGB CONC 32.9 G/dL (31.0-37.0); MEAN CORPUSCULAR VOLUME 92 fL (80-100); MONOCYTES # (AUTO) 0.6 K/uL (0.1-1.0); MONOCYTES % (AUTO) 11.5 % (2.0-9.0); NEUTROPHILS # (AUTO) 2.9 K/uL (1.8-7.7); NEUTROPHILS % (AUTO) 54.4 % (40.0-70.0); PLATELET COUNT (AUTO) 336 K/uL (150-450); RED BLOOD CELL COUNT(AUTO) 4.67 MIL/uL (4.00-5.20); RED CELL DISTRIBUTION WIDTH 14.5 % (11.5-14.5)
[2020-02-25 12:17] LABS: ANION GAP 9 mmol/L (8-16); CALCIUM, TOTAL 9.1 mg/dL (8.8-10.5); CARBON DIOXIDE 28 mmol/L (22-29); CHLORIDE 105 mmol/L (98-107); CREATININE 0.94 mg/dL (0.60-1.30); GLOMERULAR FILTR. RATE CALC > 60 mL/min (>60); GLUCOSE,RANDOM 90 mg/dL (70-110); POTASSIUM 4.7 mmol/L (3.5-5.1); SODIUM SERUM 142 mmol/L (136-145); UREA NITROGEN, BLOOD 12 mg/dL (7-18)
[2020-02-25 12:25] LABS: ALANINE AMINOTRANSFERASE 18 U/L (12-78); ALBUMIN 4.2 g/dL (3.4-5.0); ALKALINE PHOSPHATASE 91 U/L (46-116); ASPARTATE AMINOTRANSFERASE 14 U/L (15-37); B-TYPE NATRIURETIC PEPTIDE < 5 pg/mL (0-100); BILIRUBIN,TOTAL 0.5 mg/dL (0.1-1.0); TOTAL PROTEIN, SERUM 7.4 g/dL (6.4-8.2)
[2020-02-25 13:25] VITALS: BP 127/90
== END 2020-02-25 13:31 | disposition home or self-care (01) ==
LOC: EMS 09:47
DX: J40 Bronchitis, not specified as acute or chronic (principal); Z03.818 Encounter for observation for suspected exposure to other biological agents ruled out; I10 Essential (primary) hypertension; J45.909 Unspecified asthma, uncomplicated; Z87.891 Personal history of nicotine dependence; Z90.49 Acquired absence of other specified parts of digestive tract; Z90.710 Acquired absence of both cervix and uterus; Z88.6 Allergy status to analgesic agent; Z88.1 Allergy status to other antibiotic agents; Z91.013 Allergy to seafood; Z79.899 Other long term (current) drug therapy
CPT/HCPCS: 93005

== ENCOUNTER 2020-04-22 00:22 | Inpatient (IN) | payer MEDICAID, OTHER ==
[~2020-04-22] VITALS: Ht 152.4 cm; Wt 67.6 kg
[2020-04-22 01:05] LABS: BASOPHILS % (AUTO) 0.7 % (0.0-2.0); EOSINOPHILS % (AUTO) 0.7 % (1.0-6.0); HEMATOCRIT 39.8 % (36-46); HEMOGLOBIN 13.9 g/dL (12.0-16.0); LYMPHOCYTES # (AUTO) 1.5 K/uL (1.0-4.8); LYMPHOCYTES % (AUTO) 21.2 % (22.0-44.0); MEAN CORPUSCULAR HEMOGLOBIN 32.1 pg (26.0-34.0); MEAN CORPUSCULAR VOLUME 92 fL (80-100); MONOCYTES % (AUTO) 14.2 % (2.0-9.0); NEUTROPHILS # (AUTO) 4.3 K/uL (1.8-7.7); NEUTROPHILS % (AUTO) 63.2 % (40.0-70.0); PLATELET COUNT (AUTO) 341 K/uL (150-450); RED BLOOD CELL COUNT(AUTO) 4.34 MIL/uL (4.00-5.20); RED CELL DISTRIBUTION WIDTH 14.8 % (11.5-14.5)
[2020-04-22 02:08] LABS: ALANINE AMINOTRANSFERASE 26 U/L (12-78); ALBUMIN 4.3 g/dL (3.4-5.0); ALKALINE PHOSPHATASE 96 U/L (46-116); ANION GAP 10 mmol/L (8-16); ASPARTATE AMINOTRANSFERASE 37 U/L (15-37); BILIRUBIN,TOTAL 0.8 mg/dL (0.1-1.0); CALCIUM, TOTAL 9.4 mg/dL (8.8-10.5); CARBON DIOXIDE 26 mmol/L (22-29); CHLORIDE 106 mmol/L (98-107); CREATININE 0.67 mg/dL (0.60-1.30); GLOMERULAR FILTR. RATE CALC > 60 mL/min (>60); GLUCOSE,RANDOM 124 mg/dL (70-110); SODIUM SERUM 142 mmol/L (136-145); TOTAL PROTEIN, SERUM 8.1 g/dL (6.4-8.2); UREA NITROGEN, BLOOD 17 mg/dL (7-18)
[2020-04-22] MEDS ORDERED: POTASSIUM CHLORIDE 20 MEQ ER TABLET PO ONE (02:30)
[2020-04-22] MEDS ORDERED: HALOPERIDOL 5 MG TABLET PO PRN (04:45)
[2020-04-22 05:08] VITALS: BP 150/100
[2020-04-22] MEDS: LORazepam 2 MG TABLET PO PRN ×2 (05:15→12:02)
[2020-04-22 07:10] VITALS: BP 123/81
[2020-04-22] MEDS ORDERED: PETROLATUM,WHITE 28 GM JELLY TP PRN (07:30)
[2020-04-22] MEDS ORDERED: MAG HYDROX/AL HYDROX/SIMETH ES 30 ML SUSPENSION UDCUP PO PRN (07:30)
[2020-04-22] MEDS ORDERED: BACITRACIN 28.4 GM OINTMENT TP PRN (07:30)
[2020-04-22] MEDS ORDERED: MAGNESIUM HYDROXIDE SUSPENSION 30 ML UDCUP PO PRN (07:30)
[2020-04-22] MEDS ORDERED: ONDANSETRON HCL 4 MG TABLET PO PRN (07:30)
[2020-04-22] MEDS ORDERED: DOCUSATE SODIUM 100 MG CAPSULE PO PRN (07:30)
[2020-04-22] MEDS ORDERED: OMEPRAZOLE 20 MG CAPSULE PO PRN (07:30)
[2020-04-22] MEDS ORDERED: CloNIDine HCL 0.1 MG TABLET PO PRN (07:30)
[2020-04-22] MEDS ORDERED: LOPERAMIDE HCL 2 MG CAPSULE PO PRN (07:30)
[2020-04-22] MEDS ORDERED: BENZOCAINE/MENTHOL LOZENGE MM PRN (07:30)
[2020-04-22] MEDS ORDERED: ALBUTEROL SULFATE HFA 90 MCG/PUFF 8 GM INHALER IH PRN (07:30)
[2020-04-22] MEDS ORDERED: POTASSIUM CHLORIDE 10% 40 MEQ/30 ML LIQUID UDCUP PO ONE (10:00)
[2020-04-22] MEDS: OLANZapine 5 MG RAPDIS TABLET PO PRN (12:02)
[2020-04-22] MEDS: LISINOPRIL 20 MG TABLET PO SCH ×2 (12:03→16:59)
[2020-04-22] MEDS: ACETAMINOPHEN 325 MG TABLET PO PRN (12:04)
[2020-04-22 12:43] VITALS: BP 116/64
[2020-04-22] MEDS: NITROGLYCERIN 0.4 MG SUBLINGUAL TABLET #25 SL PRN ×4 (12:43→13:10)
[2020-04-22 12:55] VITALS: BP 153/65
[2020-04-22 13:10] VITALS: BP 110/60
[2020-04-22 16:58] VITALS: BP 99/67
[2020-04-23] MEDS: LORazepam 2 MG TABLET PO PRN ×2 (04:05→07:53)
[2020-04-23] MEDS: OLANZapine 5 MG RAPDIS TABLET PO PRN (04:05)
[2020-04-23 04:09] VITALS: BP 123/84
[2020-04-23 07:01] LABS: CHOL/HDL RATIO 2.6 (3.9-5.7); POTASSIUM 3.3 mmol/L (3.5-5.1)
[2020-04-23] MEDS: LISINOPRIL 20 MG TABLET PO SCH ×2 (07:54→17:02)
[2020-04-23] MEDS: DIVALPROEX SODIUM 500 MG DR TABLET PO SCH ×2 (07:54→17:02)
[2020-04-23] MEDS: QUEtiapine FUMARATE 300 MG TABLET PO SCH ×2 (07:54→17:01)
[2020-04-23 09:22] VITALS: BP 110/75
[2020-04-23 18:42] VITALS: BP 90/65
[2020-04-23] MEDS ORDERED: POTASSIUM CHLORIDE 10% 40 MEQ/30 ML LIQUID UDCUP PO ONE (21:15)
[2020-04-23 22:12] VITALS: BP 91/65
[2020-04-24] VITALS (7 sets, daily range): BP systolic 74–121; BP diastolic 48–82
[2020-04-24] MEDS: LORazepam 2 MG TABLET PO PRN ×2 (01:16→10:00)
[2020-04-24] MEDS: QUEtiapine FUMARATE 300 MG TABLET PO SCH ×2 (08:49→16:40)
[2020-04-24] MEDS: DIVALPROEX SODIUM 500 MG DR TABLET PO SCH ×2 (08:49→16:40)
[2020-04-24] MEDS: LISINOPRIL 20 MG TABLET PO SCH ×2 (08:49→16:40)
[2020-04-25 01:43] VITALS: BP 95/71
[2020-04-25 08:00] VITALS: BP 123/95
[2020-04-25] MEDS: OLANZapine 5 MG RAPDIS TABLET PO PRN (09:38)
[2020-04-25] MEDS: DIVALPROEX SODIUM 500 MG DR TABLET PO SCH ×2 (09:38→16:24)
[2020-04-25] MEDS: NITROGLYCERIN 0.4 MG SUBLINGUAL TABLET #25 SL PRN (10:39)
[2020-04-25] MEDS: QUEtiapine FUMARATE 300 MG TABLET PO SCH ×2 (10:58→16:24)
[2020-04-25 16:45] VITALS: BP 84/54
[2020-04-25 20:00] VITALS: BP 99/60
[2020-04-26] MEDS: LORazepam 2 MG TABLET PO PRN ×2 (03:51→21:34)
[2020-04-26 03:56] VITALS: BP 102/77
[2020-04-26 08:00] VITALS: BP 98/63
[2020-04-26] MEDS: QUEtiapine FUMARATE 300 MG TABLET PO SCH ×2 (09:07→16:40)
[2020-04-26] MEDS: DIVALPROEX SODIUM 500 MG DR TABLET PO SCH ×2 (09:07→16:40)
[2020-04-26 09:28] VITALS: BP 103/75
[2020-04-26 17:08] VITALS: BP 100/70
[2020-04-26 21:33] VITALS: BP 112/83
[2020-04-27] MEDS: LORazepam 2 MG TABLET PO PRN ×2 (03:09→09:56)
[2020-04-27 03:11] VITALS: BP 112/82
[2020-04-27 09:22] VITALS: BP 109/74
[2020-04-27] MEDS: QUEtiapine FUMARATE 300 MG TABLET PO SCH ×2 (09:56→16:25)
[2020-04-27] MEDS: DIVALPROEX SODIUM 500 MG DR TABLET PO SCH ×2 (09:56→16:25)
[2020-04-27] MEDS: OLANZapine 5 MG RAPDIS TABLET PO PRN (09:57)
[2020-04-27 16:49] VITALS: BP 114/82
[2020-04-27] MEDS: ACETAMINOPHEN 325 MG TABLET PO PRN (17:41)
[2020-04-28] MEDS: OLANZapine 5 MG RAPDIS TABLET PO PRN ×3 (00:43→17:45)
[2020-04-28 02:55] VITALS: BP 113/78
[2020-04-28] MEDS: ZOLPIDEM TARTRATE 10 MG TABLET PO PRN ×2 (02:56→22:35)
[2020-04-28 06:45] VITALS: BP 103/84
[2020-04-28] MEDS: LORazepam 2 MG TABLET PO PRN ×2 (06:45→12:11)
[2020-04-28 09:52] VITALS: BP 113/85
[2020-04-28] MEDS: QUEtiapine FUMARATE 300 MG TABLET PO SCH ×2 (09:58→16:23)
[2020-04-28] MEDS: DIVALPROEX SODIUM 500 MG DR TABLET PO SCH ×2 (09:58→16:23)
[2020-04-28] MEDS: NITROGLYCERIN 0.4 MG SUBLINGUAL TABLET #25 SL PRN (13:00)
[2020-04-28 16:59] VITALS: BP 110/82
[2020-04-29 03:30] VITALS: BP 102/77
[2020-04-29] MEDS: LORazepam 2 MG TABLET PO PRN ×2 (03:32→08:39)
[2020-04-29] MEDS: OLANZapine 5 MG RAPDIS TABLET PO PRN ×2 (04:34→08:39)
[2020-04-29] MEDS: QUEtiapine FUMARATE 300 MG TABLET PO SCH ×2 (08:39→16:20)
[2020-04-29] MEDS: DIVALPROEX SODIUM 500 MG DR TABLET PO SCH ×2 (08:39→16:20)
[2020-04-29 10:17] VITALS: BP 105/78
[2020-04-29 20:46] VITALS: BP 117/89
[2020-04-29 20:48] VITALS: BP 117/89
[2020-04-29] MEDS: ZOLPIDEM TARTRATE 10 MG TABLET PO PRN (23:09)
[2020-04-30 02:40] VITALS: BP 120/87
[2020-04-30] MEDS: OLANZapine 5 MG RAPDIS TABLET PO PRN ×4 (02:40→19:20)
[2020-04-30] MEDS: QUEtiapine FUMARATE 300 MG TABLET PO SCH ×2 (08:28→08:30)
[2020-04-30] MEDS: DIVALPROEX SODIUM 500 MG DR TABLET PO SCH ×2 (08:28→08:30)
[2020-04-30 08:42] VITALS: BP 126/96
[2020-04-30 16:00] VITALS: BP 96/67
[2020-04-30] MEDS: ZOLPIDEM TARTRATE 10 MG TABLET PO PRN (21:05)
[2020-05-01 03:14] VITALS: BP 128/94
[2020-05-01] MEDS: OLANZapine 5 MG RAPDIS TABLET PO PRN ×4 (03:25→17:46)
[2020-05-01 08:00] VITALS: BP 116/92
[2020-05-01] MEDS: QUEtiapine FUMARATE 300 MG TABLET PO SCH ×2 (08:51→16:08)
[2020-05-01] MEDS: DIVALPROEX SODIUM 500 MG DR TABLET PO SCH ×2 (08:51→16:08)
[2020-05-01 09:55] VITALS: BP 116/92
[2020-05-01] MEDS: ACETAMINOPHEN 325 MG TABLET PO PRN ×2 (09:58→16:10)
[2020-05-01 16:00] VITALS: BP 121/85
[2020-05-01] MEDS: ZOLPIDEM TARTRATE 10 MG TABLET PO PRN (20:22)
[2020-05-02] MEDS: OLANZapine 5 MG RAPDIS TABLET PO PRN ×4 (05:53→23:57)
[2020-05-02] MEDS: QUEtiapine FUMARATE 300 MG TABLET PO SCH ×2 (08:38→16:27)
[2020-05-02] MEDS: DIVALPROEX SODIUM 500 MG DR TABLET PO SCH ×2 (08:38→16:27)
[2020-05-02 10:17] VITALS: BP 131/94
[2020-05-02 11:25] VITALS: BP 131/94
[2020-05-02] MEDS: ACETAMINOPHEN 325 MG TABLET PO PRN ×3 (11:29→23:59)
[2020-05-02] MEDS: TiZANidine HCL 4 MG TABLET PO PRN ×2 (11:31→21:59)
[2020-05-02 16:30] VITALS: BP 120/70
[2020-05-02 17:10] VITALS: BP 119/85
[2020-05-02] MEDS: ZOLPIDEM TARTRATE 10 MG TABLET PO PRN (20:21)
[2020-05-02 21:58] VITALS: BP 136/83
[2020-05-03 09:04] VITALS: BP 122/84
[2020-05-03] MEDS: QUEtiapine FUMARATE 300 MG TABLET PO SCH ×2 (09:16→16:11)
[2020-05-03] MEDS: OLANZapine 5 MG RAPDIS TABLET PO PRN (09:16)
[2020-05-03] MEDS: DIVALPROEX SODIUM 500 MG DR TABLET PO SCH ×2 (09:16→16:11)
[2020-05-03] MEDS: TiZANidine HCL 4 MG TABLET PO PRN (11:33)
[2020-05-03 16:24] VITALS: BP 109/79
[2020-05-03] MEDS: ACETAMINOPHEN 325 MG TABLET PO PRN (17:45)
[2020-05-03 17:46] VITALS: BP 118/90
[2020-05-03] MEDS: HALOPERIDOL 10 MG TABLET PO SCH (20:25)
[2020-05-03] MEDS: ZOLPIDEM TARTRATE 10 MG TABLET PO PRN (20:25)
[2020-05-04] VITALS (7 sets, daily range): BP systolic 99–138; BP diastolic 73–87
[2020-05-04] MEDS: OLANZapine 5 MG RAPDIS TABLET PO PRN ×3 (06:28→13:54)
[2020-05-04] MEDS: ACETAMINOPHEN 325 MG TABLET PO PRN ×2 (06:28→14:52)
[2020-05-04] MEDS: TiZANidine HCL 4 MG TABLET PO PRN (06:31)
[2020-05-04] MEDS: DIVALPROEX SODIUM 500 MG DR TABLET PO SCH ×2 (08:28→16:11)
[2020-05-04] MEDS: QUEtiapine FUMARATE 300 MG TABLET PO SCH ×2 (08:28→16:11)
[2020-05-04] MEDS ORDERED: DIVA-112 PO (13:54)
[2020-05-04] MEDS: NITROGLYCERIN 0.4 MG SUBLINGUAL TABLET #25 SL PRN ×4 (16:15→18:05)
[2020-05-04] MEDS: HALOPERIDOL 10 MG TABLET PO SCH (20:38)
[2020-05-04] MEDS: ZOLPIDEM TARTRATE 10 MG TABLET PO PRN (22:30)
[2020-05-05 06:47] VITALS: BP 111/77
[2020-05-05] MEDS: TiZANidine HCL 4 MG TABLET PO PRN ×2 (06:49→16:09)
[2020-05-05] MEDS: OLANZapine 5 MG RAPDIS TABLET PO PRN ×3 (06:50→19:07)
[2020-05-05] MEDS: DIVALPROEX SODIUM 500 MG DR TABLET PO SCH ×2 (08:12→16:05)
[2020-05-05] MEDS: QUEtiapine FUMARATE 300 MG TABLET PO SCH ×2 (08:12→16:05)
[2020-05-05 08:21] VITALS: BP 130/93
[2020-05-05 16:08] VITALS: BP 118/87
[2020-05-05 16:40] VITALS: BP 118/87
[2020-05-05] MEDS: ACETAMINOPHEN 325 MG TABLET PO PRN (18:05)
[2020-05-05 18:06] VITALS: BP 139/110
[2020-05-05] MEDS ORDERED: HALO10 PO (19:37)
[2020-05-05] MEDS ORDERED: QUET300T2 PO (19:38)
[2020-05-05] MEDS ORDERED: DIVA-112 PO (19:38)
[2020-05-05] MEDS: HALOPERIDOL 10 MG TABLET PO SCH (20:30)
[2020-05-05] MEDS: ZOLPIDEM TARTRATE 10 MG TABLET PO PRN (20:42)
[2020-05-06] MEDS: OLANZapine 5 MG RAPDIS TABLET PO PRN (05:46)
[2020-05-06 05:52] VITALS: BP 109/76
[2020-05-06 08:00] VITALS: BP 137/93
[2020-05-06] MEDS: DIVALPROEX SODIUM 500 MG DR TABLET PO SCH (08:05)
[2020-05-06] MEDS: QUEtiapine FUMARATE 300 MG TABLET PO SCH (08:05)
== END 2020-05-06 09:00 | disposition home or self-care (01) | DRG 885 ==
LOC: EMS 00:22 → 3EI 03:00
PROVIDERS: ADMIT Psychiatry & Neurology Psychiatry; ATTEND Psychiatry & Neurology Psychiatry
DX: F25.9 Schizoaffective disorder, unspecified (principal); R45.851 Suicidal ideations; F41.9 Anxiety disorder, unspecified; I10 Essential (primary) hypertension; J45.909 Unspecified asthma, uncomplicated; E87.6 Hypokalemia; Z96.659 Presence of unspecified artificial knee joint; G47.00 Insomnia, unspecified; K59.00 Constipation, unspecified; Z20.828 Contact with and (suspected) exposure to other viral communicable diseases; K21.9 Gastro-esophageal reflux disease without esophagitis; Z85.07 Personal history of malignant neoplasm of pancreas; Z87.891 Personal history of nicotine dependence; Z90.49 Acquired absence of other specified parts of digestive tract; Z90.710 Acquired absence of both cervix and uterus; Z72.89 Other problems related to lifestyle
CPT/HCPCS: 76700; 76856; 83036; 84132; 87081; 93005; G0480; J3535; 36415-L1; 36415-TC; 71045-TC; 80061-TC; 87635

== ENCOUNTER 2020-07-03 22:46 | Emergency (ER) | payer MEDICAID, OTHER ==
[~2020-07-03] VITALS: Ht 149.9 cm; Wt 71.4 kg
[~2020-07-03 22:46] MED LIST changes: +DIVA-112 PO; -HYDR50CA9 PO; -LISI-662 PO; -PRAZ1 PO; -QUET100T PO; -SERT50TA12 PO
[2020-07-03] MEDS ORDERED: MORPHINE SULFATE 2 MG/ML SYRINGE IVP ONE (23:30)
[2020-07-03] MEDS ORDERED: ONDANSETRON HCL 4 MG/2 ML VIAL IVP ONE (23:30)
[2020-07-03] MEDS ORDERED: SODIUM CHLORIDE 0.9% 1,000 ML IV ONE (23:30)
[2020-07-03] MEDS ORDERED: ACETAMINOPHEN 500 MG TABLET PO ONE (23:30)
[2020-07-03] MEDS ORDERED: DIPHENOXYLATE/ATROP 2.5-0.025 MG TABLET PO ONE (23:30)
[2020-07-03] MEDS ORDERED: KETOROLAC TROMETHAMINE 30 MG/ML VIAL IVP ONE (23:30)
[2020-07-03 23:40] LABS: BASOPHILS % (AUTO) 0.3 % (0.0-2.0); EOSINOPHILS % (AUTO) 0.3 % (1.0-6.0); HEMATOCRIT 36.6 % (36-46); HEMOGLOBIN 12.6 g/dL (12.0-16.0); LYMPHOCYTES # (AUTO) 1.2 K/uL (1.0-4.8); LYMPHOCYTES % (AUTO) 16.8 % (22.0-44.0); MEAN CORPUSCULAR HEMOGLOBIN 31.5 pg (26.0-34.0); MEAN CORPUSCULAR HGB CONC 34.4 G/dL (31.0-37.0); MEAN CORPUSCULAR VOLUME 92 fL (80-100); MONOCYTES # (AUTO) 0.6 K/uL (0.1-1.0); MONOCYTES % (AUTO) 8.3 % (2.0-9.0); NEUTROPHILS # (AUTO) 5.2 K/uL (1.8-7.7); NEUTROPHILS % (AUTO) 74.3 % (40.0-70.0); PLATELET COUNT (AUTO) 395 K/uL (150-450); RED CELL DISTRIBUTION WIDTH 13.7 % (11.5-14.5)
[2020-07-03 23:48] LABS: ANION GAP 11 mmol/L (8-16); CARBON DIOXIDE 24 mmol/L (22-29); CHLORIDE 105 mmol/L (98-107); CREATININE 0.76 mg/dL (0.60-1.30); GLOMERULAR FILTR. RATE CALC > 60 mL/min (>60); GLUCOSE,RANDOM 124 mg/dL (70-110); POTASSIUM 3.2 mmol/L (3.5-5.1); SODIUM SERUM 140 mmol/L (136-145); UREA NITROGEN, BLOOD 9 mg/dL (7-18)
[2020-07-03 23:54] LABS: ALANINE AMINOTRANSFERASE 16 U/L (12-78); ALBUMIN 4.1 g/dL (3.4-5.0); ALKALINE PHOSPHATASE 98 U/L (46-116); ASPARTATE AMINOTRANSFERASE 16 U/L (15-37); BILIRUBIN,TOTAL 0.3 mg/dL (0.1-1.0); LIPASE 66 U/L (73-393); TOTAL PROTEIN, SERUM 7.1 g/dL (6.4-8.2)
[2020-07-04] MEDS ORDERED: POTASSIUM CHLORIDE 10% 40 MEQ/30 ML LIQUID UDCUP PO ONE (00:15)
[2020-07-04 02:13] VITALS: BP 124/71
== END 2020-07-04 02:31 | disposition home or self-care (01) ==
LOC: EMS 22:47
DX: K52.9 Noninfective gastroenteritis and colitis, unspecified (principal); E87.6 Hypokalemia; F17.210 Nicotine dependence, cigarettes, uncomplicated; J45.909 Unspecified asthma, uncomplicated
CPT/HCPCS: 36415; 74176; 80053; 83690; 84484; 85025; 96361; 96374; 96375; 99284; J1885; J2270; J2405; J7030